=== PATIENT | female | born 1980 | race African-American/Black ===

== ENCOUNTER 2023-09-07 11:59 | Outpatient (CLI) | payer BC, SELFPAY ==
--- NOTE | ~2023-09-07 | XR_ITS ---
Clinical Indication: Chest pain PA and lateral views of the chest: Comparison: None Findings: The lungs are clear, without evidence of focal consolidation or pleural effusion. Cardiome diastinal silhouette is within normal limits. Bones and soft tissues are unremarkable. Impression: Normal chest. Reviewed, dictated and finalized at location . Impression: Normal chest.
== END 2023-09-07 12:00 ==
DX: R07.89 Other chest pain (principal)
CPT/HCPCS: 71046